=== PATIENT | female | born 1985 ===

== ENCOUNTER 2024-07-28 18:41 | Emergency (ER) | payer OTHER ==
[~2024-07-28] VITALS: Ht 162.6 cm; Wt 54.4 kg
[2024-07-28] MEDS ORDERED: HYDHCL25 PO (20:12)
[2024-07-28] MEDS ORDERED: CATAPRES0.1 MG PO (20:12)
== END 2024-07-28 20:00 | disposition home or self-care (01) ==
LOC: ER 18:41
DX: F41.9 Anxiety disorder, unspecified (principal); F15.90 Other stimulant use, unspecified, uncomplicated
CPT/HCPCS: 99282